=== PATIENT | female | born 1985 | race Two or more races ===

== ENCOUNTER 2020-11-21 03:51 | Emergency (ER) | payer OTHER ==
[~2020-11-21] VITALS: Ht 165.1 cm; Wt 83.9 kg
[2020-11-21 04:02] VITALS: BP 127/99
[2020-11-21] MEDS ORDERED: IBUPROFEN 600 MG TABLET ONE (04:09)
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
[2020-11-21] MEDS ORDERED: IBUPROFEN 600 MG TABLET PO ONE (04:30)
== END 2020-11-21 05:39 ==
LOC: EDBD 03:53 → ER 03:53
DX: Z02.89 Encounter for other administrative examinations (principal); I10 Essential (primary) hypertension; V49.49XA Driver injured in collision with other motor vehicles in traffic accident, initial encounter; Y93.89 Activity, other specified; Y92.488 Other paved roadways as the place of occurrence of the external cause; Y99.8 Other external cause status
CPT/HCPCS: 72110-TC